=== PATIENT | male | born 1970 | race Hispanic/Latino ===

== ENCOUNTER 2017-02-06 08:03 | Emergency (ER) | payer SELFPAY ==
[2017-02-06] MEDS ORDERED: NACL 0.9% 1000 ML 1,000 ML IV ONE (09:55)
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
[2017-02-06] MEDS ORDERED: NACL 0.9% 1000 ML 1,000 ML ONE (10:04)
[2017-02-06 10:21] LABS: Basophils % (Auto) 0.9 % (0.0-1.8); Eosinophils % (Auto) 0.2 % (0.0-4.3); Hematocrit 49.1 % (35.5-45.6); Hemoglobin 17.1 gm/dl (11.8-15.2); Mean Corpuscular HGB Conc 35 % (32-34); Mean Corpuscular Hemoglobin 32 pg (28-32); Mean Corpuscular Volume 91 fl (84-94); Platelet Count 233 K/mm3 (140-440); Red Blood Count 5.41 M/mm3 (3.65-5.03); Red Cell Distribution Width 13.2 % (13.2-15.2); White Blood Count 10.2 K/mm3 (4.5-11.0)
[2017-02-06 10:40] LABS: Anion Gap 22 mmol/L; BUN/Creatinine Ratio 31; Blood Urea Nitrogen 22 mg/dL (9-20); Calcium 9.5 mg/dL (8.4-10.2); Carbon Dioxide 22 mmol/L (22-30); Chloride 100.7 mmol/L (98-107); Glucose 127 mg/dL (75-100); Potassium 4.1 mmol/L (3.6-5.0); Sodium 141 mmol/L (137-145)
[2017-02-06 10:44] LABS: Albumin 4.4 g/dL (3.9-5); Albumin/Globulin Ratio 1.3 %; Bilirubin,Direct 0.3 mg/dL (0-0.2); Bilirubin,Indirect 0.9 mg/dL; Bilirubin,Total 1.2 mg/dL (0.1-1.2); Total Protein 7.9 g/dL (6.3-8.2)
--- NOTE | 2017-02-06 11:58 | Gastroenterology Consultation ---
History of Present Illness - Reason for Consult Consult date: 02/06/17 food bolus Requesting physician: SALBADOR AGUAYO - History of Present Illness Mr Sanchez is a 46 yo male who presents with sensation of food being stuck in his chest. The symptoms started ~3 days ago while eating chicken. He has tried measures at home for the sensation to pass, but presented to the ED today due to on going symptoms. He is unable to tolerate any po including liquids or saliva. He denies sob/chest pain. + h/o tobacco use, denies h/o reflux sx's. No prior dysphagia symptoms in the past. Denies abd pain. Past History Past Medical History: No medical history Past Surgical History: No surgical history Social history: smoking Family history: no significant family history Medications and Allergies Allergies Allergy/AdvReac Type Severity Reaction Status Date / Time No Known Allergies Allergy Unverified 02/06/14 12:44 Home Medications Medication Instructions Recorded Confirmed Last Taken Type Albuterol Sulfate [Ventolin HFA] 2 puff IH Q4H PRN #1 hfa.aer.ad 02/06/14 Unknown Rx Azithromycin [Zithromax Z-HILDA] 250 mg PO DAILY #6 tablet 02/06/14 Unknown Rx Guaifenesin/Pseudoephedrne HCl 1 each PO Q12HR PRN #30 tab.er.12h 02/06/14 Unknown Rx [Mucinex D ER Tablet] Ibuprofen [Motrin] 800 mg PO Q8H PRN #30 tablet 02/06/14 Unknown Rx Inhaler, Assist Devices [Space 1 each MC PRN #1 spacer 02/06/14 Unknown Rx Chamber Plus] Prednisone [Prednisone 10 mg 10 mg PO .TAPER #1 tab.ds.pk 02/06/14 Unknown Rx (6-Day Pack, 21 Tabs)] traMADol [Ultram 50 MG tab] 50 mg PO Q6HR PRN #20 tablet 02/06/14 Unknown Rx Review of Systems - Review of Systems All systems: negative (per HPI) Exam - Constitutional Vital Signs: Temp Pulse Resp BP Pulse Ox 98.2 F 98 H 22 112/76 98 02/06/17 08:17 02/06/17 08:17 02/06/17 08:17 02/06/17 08:17 02/06/17 08:17 General appearance: no acute distress - EENT Eyes: PERRL, EOM intact ENT: hearing intact - Respiratory Respiratory effort: normal Respiratory: bilateral: CTA - Cardiovascular Rhythm: regular Heart Sounds: Present: S1 & S2 Extremities: No edema - Gastrointestinal General gastrointestinal: Present: soft, non-tender, non-distended - Integumentary Integumentary: Present: clear, warm - Neurologic Neurological: alert and oriented x3 - Psychiatric Psychiatric: appropriate mood/affect - Labs CBC & Chem 7: 02/06/17 10:05 02/06/17 10:05 Lab Results: Laboratory Results - last 24 hr 02/06/17 02/06/17 02/06/17 10:05 10:05 10:05 WBC 10.2 RBC 5.41 H Hgb 17.1 H Hct 49.1 H MCV 91 MCH 32 MCHC 35 H RDW 13.2 Plt Count 233 Lymph % (Auto) 10.9 L Dukes % (Auto) 6.8 Eos % (Auto) 0.2 Baso % (Auto) 0.9 Lymph # 1.1 L Dukes # 0.7 Eos # 0.0 Baso # 0.1 Seg Neutrophils % 81.2 H Seg Neutrophils # 8.3 H Sodium 141 Potassium 4.1 Chloride 100.7 Carbon Dioxide 22 Anion Gap 22 BUN 22 H Creatinine 0.7 L Estimated GFR > 60 BUN/Creatinine Ratio 31 Glucose 127 H Calcium 9.5 Total Bilirubin 1.20 Direct Bilirubin 0.3 H Indirect Bilirubin 0.9 AST 36 ALT 34 Alkaline Phosphatase 102 Total Protein 7.9 Albumin 4.4 Albumin/Globulin Ratio 1.3 Lipase 30 Assessment and Plan 1. Food impaction - urgent EGD today. procedures including risks/ complications discussed with pt and expressed understanding.
--- NOTE | 2017-02-06 12:58 | Post Operative Note ---
Pre-op diagnosis: food bolus Post-op diagnosis: other (food bolus in distal esophagus, severe underlying ulcerations in the distal esophagus where food was impacted with mild stenosis.) Findings: Food bolus in distal esophagus, spontaneously passed into stomach. Underlying circumferential ulcerated/necrotic mucosa in the distal esophagus where food was impacted. There was mild stenosis in this area but the endoscope was advanced easily into the stomach without difficulty. Moderately severe esophagitis. Procedure: EGD with food bolus disimpaction Anesthesia: MAC Surgeon: LILI MACKENZIE Estimated blood loss: none Pathology: none Condition: stable Disposition: other (back to ED and then d/c home if patient has ride)
[2017-02-06] MEDS ORDERED: NACL 0.9% 1000 ML 1,000 ML IV SCH (13:00)
[2017-02-06] MEDS ORDERED: DIPRIVAN 10 MG/ML IV ONE (13:04)
--- NOTE | 2017-02-06 13:04 | Anesthesia Consultation ---
Anesthesia Consult and Med Hx Date of service: 02/06/17 - Airway Anesthetic Teeth Evaluation: Dentures ROM Head & Neck: Adequate Mental/Hyoid Distance: Adequate Mallampati Class: Class II Intubation Access Assessment: Probably Good - Pulmonary Exam CTA: Yes - Cardiac Exam Cardiac Exam: RRR - Pre-Operative Health Status ASA Pre-Surgery Classification: ASA2 Proposed Anesthetic Plan: MAC - Pulmonary Hx Smoking: Yes (1ppd) - Additional Comments Anesthesia Medical History Comments: NAC
--- NOTE | 2017-02-06 13:05 | Anesthesia Day of Surgery ---
Anesthesia Day of Surgery - Day of Surgery Patient Examined: Yes Patient H&P Reviewed: Yes Patient is NPO: Yes
--- NOTE | 2017-02-06 13:05 | Operative Report ---
Operative Report Operative Report: EGD PROCEDURE NOTE DATE OF PROCEDURE: 02/06/2017 ENDOSCOPIST: Jaya Quintana PRE-OP DIAGNOSIS: Esophageal food impaction POST-OP DIAGNOSIS: Food impaction in distal esophagus (passed into stomach), severe underlying ulcerated/necrotic mucosa in the lower third of the esophagus. ANESTHESIA: MAC COMPLICATIONS: no immediate complications ESTIMATED BLOOD LOSS: none PROCEDURE: After consent was obtained, the patient was placed in the left lateral decubitus position. The fujinon endoscope was inserted into the patient's mouth under direct vision, and advanced to the 2nd portion of the duodenum without difficulty. The patient tolerated the procedure well. The views of the mucosa were good. The patient's vital signs were monitored continuously throughout the procedure. FINDINGS: There was a food impaction in the lower third of the esophagus. The bolus passed spontaneously into the stomach with air insufflation and gentle advancement of the endoscope. Upon passage of the food bolus, the underlying esophageal mucosa revealed circumferential severe ulcerated mucosa with necrosis. There was moderately severe esophagitis in the lower third of the esophagus. There was mild stenosis at the area of abnormal mucosa/food bolus, however the endoscope was advanced easily into the stomach (widely patent). The stomach and duodenum appeared normal. IMPRESSION: 1. Food bolus in distal esophagus s/p disimpaction 2. Underlying circumferential ulcerated mucosa with necrosis appearance at the area of food bolus 3. Moderately severe esophagitis Recommendations: -okay for clear liquid diet today. advance to soft diet tomorrow if tolerating clears. avoid solid meals until patient can be seen in GI clinic in 1-2 weeks ( particularly meats, bread, etc) -patient needs to be on PPI BID dosing -avoid NSAIDs -Patient needs to f/u in GI clinic in 2 weeks, and will need repeat endoscopy as outpatient in 3-4 weeks to re-evaluate underlying esophageal mucosa with possible biopsies and dilatation as needed Patient can be discharged home from GI stand point if he has a ride. Please call as needed or with questions.
--- NOTE | 2017-02-06 13:06 | Fluoroscopy Report ---
FLUOROSCOPY BARIUM SWALLOW/ESOPHAGRAM INDICATION: Vomiting for 3 days. Evaluate for foreign body. COMPARISON: None similar. FINDINGS: Barium swallow performed using thin barium, though patient had difficulty retaining it. Couple of initial swallows suggest at least 2 irregular filling defects along the distal esophagus, larger approximately 4 cm while the other more distal at or just above the GE junction is approximately 2 cm. Subsequent swallows resulted in a standing column of contrast along the mid to distal esophagus, quickly obscuring the more proximal of the above described masses/filling defects. Minimal contrast noted past a normal appearing GE junction into the stomach. CONCLUSION: Distal esophageal heterogeneity/suspected filling defects/masses, as described on this limited exam. GI/endoscopic correlation may be further helpful, as appropriate. Thank you for the opportunity to participate in this patient's care.
[2017-02-06] MEDS ORDERED: TYLENOL PO ONE (14:27)
[2017-02-06 15:03] VITALS: BP 117/79
== END 2017-02-06 15:03 | disposition home or self-care (01) ==
LOC: ED 08:03
DX: T18.128A Food in esophagus causing other injury, initial encounter (principal); X58.XXXA Exposure to other specified factors, initial encounter; Y93.89 Activity, other specified; Y92.89 Other specified places as the place of occurrence of the external cause; Y99.8 Other external cause status; F17.200 Nicotine dependence, unspecified, uncomplicated
CPT/HCPCS: 36415; 43235; 74220; 80048; 80074; 83690; 85025; 96360; 99284; J2704; J7030